=== PATIENT | female | born 1990 | race African-American/Black ===

== ENCOUNTER 2016-06-21 02:50 | Emergency (ER) | payer SELFPAY ==
[~2016-06-21] VITALS: Ht 165.1 cm; Wt 128.0 kg
[~2016-06-21 02:50] MED LIST: ALBUTEROL
[2016-06-21 03:34] VITALS: BP 125/66
[2016-06-21] MEDS ORDERED: SILVER SULFADIAZINE 1% CREAM 25GM TOP ONE (07:30)
[2016-06-21] MEDS ORDERED: IBUPROFEN 600MG TABLET PO ONE (07:45)
[2016-06-21] MEDS ORDERED: IBUPROFEN 600MG TABLET ONE (07:49)
== END 2016-06-21 08:02 | disposition home or self-care (01) ==
LOC: ER 08:02
DX: T23.202A Burn of second degree of left hand, unspecified site, initial encounter (principal); T23.102A Burn of first degree of left hand, unspecified site, initial encounter; T31.0 Burns involving less than 10% of body surface; X10.1XXA Contact with hot food, initial encounter; J45.909 Unspecified asthma, uncomplicated; M32.9 Systemic lupus erythematosus, unspecified; Y93.G3 Activity, cooking and baking; Y92.090 Kitchen in other non-institutional residence as the place of occurrence of the external cause; Y99.8 Other external cause status
CPT/HCPCS: 16020; 99284; X7700; Z7610

== ENCOUNTER 2017-01-24 11:17 | Emergency (ER) | payer SELFPAY ==
[~2017-01-24] VITALS: Ht 165.1 cm; Wt 136.0 kg
[2017-01-24] MEDS ORDERED: IPRATROPIUM BROMIDE (0.02%) 0.5MG/2.5ML NEB HHN STA (11:45)
[2017-01-24] MEDS ORDERED: METHYLPREDNISOLONE SOD SUCC 125 MG/2 ML VIAL IV STA (11:45)
[2017-01-24] MEDS ORDERED: ALBUTEROL (0.083%) 2.5MG/3ML NEB HHN STA ×2 (11:45→14:24)
[2017-01-24 12:11] LABS: HEMATOCRIT. 45.5 % (36.0-48.0); HEMOGLOBIN. 15.3 g/dL (12.0-16.0); MEAN CORPUSCULAR HEMOGLOBIN 26.8 pg (28.0-32.0); MEAN CORPUSCULAR VOLUME 79.7 fL (81.0-99.0); MEAN PLATELET VOLUME 7.6 fl (7.4-10.4); PLATELET 262 x1000/uL (130-400); RED BLOOD CELL COUNT 5.72 mill/uL (4.2-5.4); RED CELL DISTRIBUTION WIDTH 14.5 % (11.6-14.6)
[2017-01-24 12:17] LABS: PROTHROMBIN TIME 10.7 sec (9.4-11.6)
[2017-01-24 12:27] LABS: CARBON DIOXIDE 25 mEq/L (21-32); CHLORIDE 107 mEq/L (98-107); TROPONIN I < 0.02 ng/mL (0.00-0.04)
[2017-01-24 12:36] LABS: HCG SCREEN NEGATIVE
[2017-01-24 12:55] LABS: PLATELET ESTIMATE NORMAL
[2017-01-24 15:09] VITALS: BP 115/72
== END 2017-01-24 15:11 | disposition home or self-care (01) ==
LOC: ER 12:10
DX: J45.901 Unspecified asthma with (acute) exacerbation (principal); E66.9 Obesity, unspecified; M32.9 Systemic lupus erythematosus, unspecified
CPT/HCPCS: 36415; 71010; 80053; 83880; 84484; 84703; 85025; 85610; 93005; 94640; 94644; 96374; 99285; J2930; J7611

== ENCOUNTER 2018-01-30 08:17 | Emergency (ER) | payer MEDICAID ==
[~2018-01-30] VITALS: Ht 165.1 cm; Wt 109.0 kg
[2018-01-30] MEDS ORDERED: SODIUM CHLORIDE 0.9% 1,000 ML IV ONE (10:56)
[2018-01-30] MEDS ORDERED: METHYLPREDNISOLONE SOD SUCC 125 MG/2 ML VIAL IV STA (10:56)
[2018-01-30] MEDS ORDERED: IPRATROPIUM/ALBUTEROL 0.5-3(2.5)MG/3ML NEB HHN ONE (11:00)
[2018-01-30] MEDS ORDERED: AZITHROMYCIN 500 MG TABLET PO ONE (11:00)
[2018-01-30 12:05] LABS: BASOPHILS % 1.1 % (0.0-2.0); EOSINOPHILS % 3.2 % (0.0-5.0); HEMOGLOBIN. 14.6 g/dL (12.0-16.0); LYMPHOCYTES % 21.8 % (20.0-50.0); MEAN CORPUSCULAR VOLUME 81.4 fL (81.0-99.0); MEAN PLATELET VOLUME 8.6 fl (7.4-10.4); MONOCYTES % 8.4 % (2.0-8.0); NEUTROPHILS % 65.5 % (40.0-76.0); PLATELET 263 x1000/uL (130-400); RED CELL DISTRIBUTION WIDTH 14.6 % (11.6-14.6)
[2018-01-30 12:07] LABS: HCG SCREEN NEGATIVE
[2018-01-30 13:17] LABS: CHLORIDE 108 mEq/L (98-107)
[2018-01-30 14:00] VITALS: BP 132/72
== END 2018-01-30 14:02 | disposition home or self-care (01) ==
LOC: ER 08:17
DX: J45.901 Unspecified asthma with (acute) exacerbation (principal); M32.9 Systemic lupus erythematosus, unspecified
CPT/HCPCS: 36415; 71045; 80053; 81025; 83880; 84484; 84703; 85025; 94640; 96374; 99284; J2930; J7030; J7620

== ENCOUNTER 2018-04-17 16:11 | Emergency (ER) | payer MEDICAID ==
[~2018-04-17] VITALS: Ht 165.1 cm; Wt 114.0 kg
[2018-04-17] MEDS ORDERED: DEXAMETHASONE 4MG/ML 1ML VIAL IM ONE (18:30)
[2018-04-17] MEDS ORDERED: PENICILLIN G BENZATHINE 1,200,000 UNITS/2ML SYR IM ONE (18:30)
[2018-04-17] MEDS ORDERED: KETOROLAC 60MG/2ML VIAL IM ONE (18:30)
[2018-04-17 18:38] VITALS: BP 116/77
== END 2018-04-17 19:06 | disposition home or self-care (01) ==
LOC: ER 16:11
DX: J02.9 Acute pharyngitis, unspecified (principal); J45.909 Unspecified asthma, uncomplicated; M32.9 Systemic lupus erythematosus, unspecified
CPT/HCPCS: 96372; 99283; J0561; J1100; J1885; Z7610

== ENCOUNTER 2018-11-10 08:07 | Emergency (ER) | payer MEDICAID ==
[~2018-11-10] VITALS: Ht 165.1 cm; Wt 160.0 kg
[2018-11-10] MEDS ORDERED: IPRATROPIUM BROMIDE (0.02%) 0.5MG/2.5ML NEB HHN STA (08:39)
[2018-11-10] MEDS ORDERED: ALBUTEROL (0.083%) 2.5MG/3ML NEB HHN STA (08:39)
[2018-11-10] MEDS ORDERED: PREDNISONE 20MG TABLET PO STA (08:39)
[2018-11-10] MEDS ORDERED: KETOROLAC 60MG/2ML VIAL IM ONE (08:45)
[2018-11-10 08:47] VITALS: BP 131/73
== END 2018-11-10 09:20 | disposition left against medical advice (07) ==
LOC: ER 08:07
DX: J45.901 Unspecified asthma with (acute) exacerbation (principal); M79.10 Myalgia, unspecified site; Z79.899 Other long term (current) drug therapy
CPT/HCPCS: 94644; 96372; 99285; J1885; J7512; J7611; Z7610

== ENCOUNTER 2019-02-01 08:10 | Emergency (ER) | payer MEDICAID ==
[~2019-02-01] VITALS: Ht 165.1 cm; Wt 113.0 kg
[2019-02-01] MEDS ORDERED: ACETAMINOPHEN 500MG TABLET PO ONE (11:45)
[2019-02-01 12:10] VITALS: BP 154/74
== END 2019-02-01 12:20 | disposition home or self-care (01) ==
LOC: ER 08:10
DX: O9A.219 Injury, poisoning and certain other consequences of external causes complicating pregnancy, unspecified trimester (principal); S00.33XA Contusion of nose, initial encounter; O26.899 Other specified pregnancy related conditions, unspecified trimester; M32.9 Systemic lupus erythematosus, unspecified; O99.519 Diseases of the respiratory system complicating pregnancy, unspecified trimester; J45.909 Unspecified asthma, uncomplicated; Z3A.00 Weeks of gestation of pregnancy not specified; X58.XXXA Exposure to other specified factors, initial encounter; Y93.89 Activity, other specified; Y92.89 Other specified places as the place of occurrence of the external cause; Y99.8 Other external cause status
CPT/HCPCS: 81025; 99283

== ENCOUNTER 2019-02-18 11:09 | Emergency (ER) | payer MEDICAID ==
[~2019-02-18] VITALS: Ht 165.1 cm; Wt 114.1 kg
[2019-02-18 17:56] LABS: CLARITY URINE CLOUDY (CLEAR); COLOR URINE DARK YELLOW (YELLOW); KETONES URINE TRACE (NEGATIVE); LEUKOCYTE ESTERASE URINE TRACE (NEGATIVE); NITRITE URINE NEGATIVE (NEGATIVE); OCCULT BLOOD URINE NEGATIVE (NEGATIVE); PH URINE 6.5 (4.5-8.0); PROTEIN URINE TRACE (NEGATIVE)
[2019-02-18 18:03] LABS: BASOPHILS % 0.9 % (0.0-2.0); CHLORIDE 108 mEq/L (98-107); HEMATOCRIT. 43.9 % (36.0-48.0); HEMOGLOBIN. 14.6 g/dL (12.0-16.0); LYMPHOCYTES % 24.5 % (20.0-50.0); MEAN CORPUSCULAR HEMOGLOBIN 27.5 pg (28.0-32.0); MEAN CORPUSCULAR VOLUME 82.9 fL (81.0-99.0); MEAN PLATELET VOLUME 7.5 fl (7.4-10.4); MONOCYTES % 9.9 % (2.0-8.0); NEUTROPHILS % 63.7 % (40.0-76.0); PLATELET 254 x1000/uL (130-400); RED BLOOD CELL COUNT 5.29 mill/uL (4.2-5.4); RED CELL DISTRIBUTION WIDTH 14.5 % (11.6-14.6)
[2019-02-18 18:27] LABS: B-HCG QUANTITATIVE 19432 mIU/mL (<3)
[2019-02-18 21:30] VITALS: BP 116/71
== END 2019-02-18 21:46 | disposition home or self-care (01) ==
LOC: ER 11:09
DX: O23.90 Unspecified genitourinary tract infection in pregnancy, unspecified trimester (principal); R82.71 Bacteriuria; O46.91 Antepartum hemorrhage, unspecified, first trimester; O99.511 Diseases of the respiratory system complicating pregnancy, first trimester; J45.909 Unspecified asthma, uncomplicated; O99.321 Drug use complicating pregnancy, first trimester; F12.10 Cannabis abuse, uncomplicated; O26.891 Other specified pregnancy related conditions, first trimester; M32.9 Systemic lupus erythematosus, unspecified; Z3A.01 Less than 8 weeks gestation of pregnancy
CPT/HCPCS: 36415; 76801; 80053; 81003; 81025; 84702; 85025; 86850; 86900; 87210; 87491; 87591; 99284

== ENCOUNTER 2020-11-03 22:09 | Emergency (ER) | payer MEDICAID | END 2020-11-03 22:34 | disposition left against medical advice (07) | LOC: ER 22:19 | DX: Z53.21 Procedure and treatment not carried out due to patient leaving prior to being seen by health care provider (principal) ==